=== PATIENT | female | born 1985 | race Caucasian/White ===

== ENCOUNTER 2017-06-28 12:06 | Emergency (ER) | payer SELFPAY ==
[~2017-06-28] VITALS: Ht 152.4 cm; Wt 63.5 kg
[~2017-06-28 12:06] MED LIST: Z.0.NO CURRENT MEDS
[2017-06-28 12:10] VITALS: BP 93/52; PULSE 73; RESP 16; TEMP 98.5; O2SAT 96
[2017-06-28] MEDS ORDERED: ZOLO100T PO (12:15)
--- NOTE | 2017-06-28 12:31 | PD ---
HPI Chief Complaint: Cold / Flu Symptoms Time Seen by Provider: 12:23 Travel History International Travel<30 days: No Contact w/Intl Traveler<30days: No Traveled to known affect area: No History of Present Illness HPI 31-year-old female that presents to the ED for evaluation of cold like symptoms. Patient has escalating symptoms since Wednesday. Per patient he worsen on Wednesday and Wednesday. She states having body aches, chest pain and back cough with sinus congestion and right ear pain. Per patient she's been taking OTC meds with minimal relief. Per patient's symptoms worsen no Wednesday night after she went kayaking. She denies any urinary or bowel movement issues. Chest is only with cough. Cough is nonproductive. No other sick contacts. No recent travel. No urinary or bowel movement issues. No medical issues. She does have a history of ear infections when she was little. Her pain per patient is 4 out of 10. PFSH Past Medical History Anxiety: Yes Tetanus Vaccination: > 5 Years Influenza Vaccination: No ?: Not LMP: Now : 1 : 1 Past Surgical History Appendectomy: Yes Social History Alcohol Use: No Tobacco Use: Yes (2 packs/week ) Substance Use: No Allergies-Medications (Allergen,Severity, Reaction): Coded Allergies: No Known Allergies (Unverified Adverse Reaction, Unknown, 06/28/17) Reported Meds & Prescriptions Reported Meds & Active Scripts Active Tessalon Perles (Benzonatate) 100 Mg Cap 100 Mg PO TID PRN Prednisone 20 Mg Tab 20 Mg PO BID 5 Days Amoxicillin 875 Mg Tab 875 Mg PO BID 10 Days Reported Zoloft (Sertraline HCl) 100 Mg Tab 150 Mg PO DAILY Review of Systems Except as stated in HPI: all other systems reviewed are Neg Physical Exam Narrative GENERAL: Well-nourished, well-developed patient in no apparent distress. SKIN: Warm and dry. HEAD: Atraumatic. Normocephalic. EYES: Pupils equal and round reactive to light and accommodation. No scleral icterus. No injection or drainage. ENT: No nasal bleeding or discharge. Mucous membranes pink and moist. TMs are clear with no sign of infection or perforation except for the right TM which is erythematous and bulging. No mastoid tenderness. Ear canals are intact bilaterally. No lymphadenopathy. Nostril mucosa is red and moist with clear mucus noted. Tonsils are not enlarged or swollen. No ulvua Deviation. Tongue is midline. Patient does have sinus tenderness on the maxillary sinus. NECK: Trachea midline. No JVD. No meningeal signs noted. CARDIOVASCULAR: Regular rate and rhythm. RESPIRATORY: No accessory muscle use. Clear to auscultation. Breath sounds equal bilaterally. GASTROINTESTINAL: Abdomen soft, non-tender, nondistended. Hepatic and splenic margins not palpable. MUSCULOSKELETAL: Extremities without clubbing, cyanosis, or edema. No obvious deformities. NEUROLOGICAL: Awake and alert. No obvious cranial nerve deficits. Motor grossly within normal limits. Five out of 5 muscle strength in the arms and legs. Normal speech. PSYCHIATRIC: Appropriate mood and affect; insight and judgment normal. Data Data Last Documented VS Vital Signs Date Time Temp Pulse Resp B/P (MAP) Pulse Ox O2 Delivery O2 Flow Rate FiO2 06/28/17 12:15 16 96 Room Air 06/28/17 12:10 98.5 73 93/52 (66) Orders Orders Ed Discharge Order (06/28/17 12:28) [facility] Medical Decision Making Medical Screen Exam Complete: Yes Emergency Medical Condition: Yes Medical Record Reviewed: Yes Differential Diagnosis Viral illness versus sinusitis versus rhinosinusitis versus bronchitis Narrative Course 31-year-old female that presents to the ED for evaluation of cold-like symptoms. Patient was properly examined and was found to have signs and symptoms consistent appears to be likely rhinosinusitis. No sign of influenza at this time. At this time I recommend treatment with amoxicillin, Tessalon Perles, prednisone. Told to take OTC medicines as needed. Follow with PCP. See ED worsening symptoms. Diagnosis Primary Impression: Acute rhinosinusitis Patient Instructions: General Instructions Departure Forms: Tests/Procedures, Work Release Enter return to work date: Jul 01, 2017 Additional Instructions: Motrin and Tylenol for pain and fever. You can use [id number] antihistamine as well as well as Mucinex as needed for runny nose and congestion. Cough drops for cough as needed. Drink plenty of fluids. Follow-up with PCP. See ED for worsening symptoms. Med/Other Pt SpecificInfo: Prescription(s) given Scripts Benzonatate (Tessalon Perles) 100 Mg Cap 100 MG PO TID Y for COUGH, #20 CAP 0 Refills Prov: Ad Reyes MD 06/28/17 Prednisone (Prednisone) 20 Mg Tab 20 MG PO BID for 5 Days, #10 TAB 0 Refills Prov: Ad Reyes MD 06/28/17 Amoxicillin (Amoxicillin) 875 Mg Tab 875 MG PO BID for Infection for 10 Days, #20 TAB 0 Refills Prov: Ad Reyes MD 06/28/17 Disposition: 01 DISCHARGE HOME Condition: Stable Tip Hood Jun 28, 2017 12:31
[2017-06-28] MEDS ORDERED: AMOX875T PO (12:32)
[2017-06-28] MEDS ORDERED: PRED20 PO (12:32)
[2017-06-28] MEDS ORDERED: BENZ100 PO (12:32)
== END 2017-06-28 12:58 | disposition home or self-care (01) ==
LOC: PHEFT 12:06
DX: J01.90 Acute sinusitis, unspecified (principal); F17.200 Nicotine dependence, unspecified, uncomplicated
CPT/HCPCS: 99283